=== PATIENT | female | born 1990 | race Hispanic/Latino ===

== ENCOUNTER 2020-02-29 14:25 | Outpatient (AMBR) | payer MEDICAID, SELFPAY ==
--- NOTE | 2020-02-29 13:50 | LACNOTE_ITS ---
Assessment LAC OP History History Hx of Breast Surgery: No History Comment: Tried breasting and pumping.... too painful. MOB states that she wished it would have worked. LAC Pain Pain Bilateral Nipple: Pain Intensity: None Alternative Milk Expression Alternative Milk Expression Alternative Method Used: Yes Method Used: Pumping Alternative Method Produced Milk / Colostrum: Yes Production Amount: 4 Production ounces or mls: ounces Pump Used: Electric Pumping Frequency Comment: L side more then R. 1 or 2 times per day. LAC Assessment Breast Feeding Assessment Date of : 02/[birth year]/20 Current Age of baby: 22 Weight: 8 lb 4 oz Current weight of baby: 9 lb 4 oz Cameron # of Stool voids in last 24 hrs: 5 Stool Size: Medium Color of Stools: yellow Cameron # of Urine voids in last 24 hrs: 8 Breast Feeding Ability: Well Cameron Activity Level: Awake / Alert Cameron Muscle Tone: With In Normal Limits Cameron Suck Quality: Areolar Compression and Rhythmic Effective [place] Suck: Yes [place] Swallow: Audible Lip Seal: Good (upper lip is sucked in) Feeding Posistion: Cradle Additional Latch or Posistion Assistance Needed: Minimal Breast Feeding Comment: Discussed rolling up upper lip and centering baby on the breast so that baby achieved a good seal. Baby transferred 95mls from L side only. Baby spit up about 30 minutes after feeding. Discussed the importance of breaking the seal and burping often. LAC Intervention Interventions Techniques Discussed: Latch and Position Discharge Follow Up Appointment Date and Time: 03/07 @11:30 Other Referral Made: No LAC Latch Score LATCH Score Latch: Grasps Breast, Rythmic Suck Audible Swallow: Spontaneous, Intermittent, Frequent Nipple Type: Everted After Stimulation Comfort: Soft, Nontender Hold: No Assistance Needed Total Score: 10 LAC Cameron Oral Assessment Oral Assessment Lip: Normal Exam (MOB was taught how to roll out upper lip) Dental Referral made: No LAC Education Education : Education Topics: Establishing Milk Supply, Stomach Capacity, Milk Production (MOB was encouraged to continue to offer only one breast per feeding and to take baby off the breast a few times during the feeding to burp baby.), Risk of Improper Latch Position and Who to Call for Assistance Education Topic Comment: MOB asked about what foods/drinks to avoid; education given. Teaching Methods: Verbal instruction and Demonstration Resource Information Given: [facility] Services OP DC Assessment Discharge Follow Up Appointment Date and Time: 03/07 @11:30 Other Referral Made: No Visit Complete?: Yes
--- NOTE | 2020-03-07 12:24 | LACNOTE_ITS ---
Assessment LAC Assessment Breast Feeding Assessment Date of : [birth year] Weight: 8 lb 4 oz Current weight of baby: 10 lb 1 oz Breast Feeding Ability: Well Activity Level: Awake / Alert and Rooting Muscle Tone: With In Normal Limits Suck Quality: Areolar Compression and Rhythmic Effective Suck: Yes [place] Swallow: Audible (gulping) Jaw: With In Norml Limits [place] Lip Seal: Good Feeding Posistion: Cradle Additional Latch or Posistion Assistance Needed: None LAC Intervention Discharge Follow Up Appointment Date and Time: 03/21 Other Referral Made: No LAC Latch Score LATCH Score Latch: Grasps Breast, Rythmic Suck Audible Swallow: Spontaneous, Intermittent, Frequent Nipple Type: Everted After Stimulation Comfort: Soft, Nontender Hold: No Assistance Needed Total Score: 10 LAC Education Education : Education Topics: Milk Production Education Topic Comment: Bayb is still spitting up after most feeding sessions. Positioning discussed. GERD. Reducing milk supply options also given. Teaching Methods: Verbal instruction Resource Information Given: [facility] Services and [facility] Resourses OP DC Assessment Discharge Follow Up Appointment Date and Time: 03/21 Other Referral Made: No Visit Complete?: Yes
== END 2020-03-02 23:59 | disposition home or self-care (01) ==
PROVIDERS: PCP Obstetrics & Gynecology; Visit Provider Obstetrics & Gynecology
DX: Z39.1 Encounter for care and examination of lactating mother (principal)